=== PATIENT | male | born 1995 | race African-American/Black ===

== ENCOUNTER 2018-03-05 00:28 | Emergency (ER) | payer MEDICAID, OTHER ==
[~2018-03-05] VITALS: Ht 175.3 cm; Wt 65.0 kg
[2018-03-05] MEDS ORDERED: KETOROLAC 60MG/2ML VIAL IM STA (02:51)
[2018-03-05] MEDS ORDERED: TETANUS, DIPHTHERIA, PERTUSSIS VAC/PF 0.5ML (>7YR OLD) IM ONE (03:00)
[2018-03-05] MEDS ORDERED: HYDROCODONE/ACETAMINOPHEN 5/325MG TABLET PO STA (05:08)
[2018-03-05 05:21] VITALS: BP 118/62
[2018-03-05] MEDS ORDERED: BACITRACIN ZINC OINT UDPKT TOP ONE (06:00)
== END 2018-03-05 06:41 | disposition home or self-care (01) ==
LOC: ER 00:28
DX: S61.432A Puncture wound without foreign body of left hand, initial encounter (principal); F17.200 Nicotine dependence, unspecified, uncomplicated; F12.10 Cannabis abuse, uncomplicated; E11.9 Type 2 diabetes mellitus without complications; W18.39XA Other fall on same level, initial encounter; Y93.89 Activity, other specified; Y92.89 Other specified places as the place of occurrence of the external cause; Y99.8 Other external cause status
CPT/HCPCS: 29125; 73130; 90471; 90715; 96372; 99284; J1885